=== PATIENT | male | born 1985 | race Caucasian/White ===

== ENCOUNTER 2024-06-13 10:07 | Emergency (ER) | payer SELFPAY ==
[~2024-06-13] VITALS: Ht 180.3 cm; Wt 82.0 kg
[2024-06-13 10:17] VITALS: O2SAT 100
[2024-06-13 11:06] LABS: BASOPHILS % 1.3 % (0.0-2.0); EOSINOPHILS % 1.8 % (0.0-5.0); HEMATOCRIT. 42.7 % (42.0-52.0); HEMOGLOBIN. 14.7 g/dL (14.0-18.0); LYMPHOCYTES % 26.7 % (20.0-50.0); MEAN CORPUSCULAR HEMOGLOBIN 29.1 pg (28.0-32.0); MEAN CORPUSCULAR HGB CONC 34.3 g/dL (31.0-37.0); MEAN CORPUSCULAR VOLUME 84.9 fL (80.0-94.0); MEAN PLATELET VOLUME 7.4 fl (7.4-10.4); MONOCYTES % 8.3 % (2.0-8.0); NEUTROPHILS % 61.9 % (40.0-76.0); PLATELET 270 x1000/uL (130-400); RED BLOOD CELL COUNT 5.03 mill/uL (4.7-6.1); RED CELL DISTRIBUTION WIDTH 13.4 % (11.6-14.6)
[2024-06-13 11:10] LABS: CHLORIDE 108 mEq/L (98-107); POTASSIUM 4.2 mEq/L (3.5-5.1); SODIUM 141 mEq/L (136-145)
[2024-06-13 11:11] LABS: CARBON DIOXIDE 25 mEq/L (21-32)
[2024-06-13 11:16] LABS: CREATININE 1.1 mg/dL (0.6-1.3); GLUCOSE 117 mg/dL (70-105); PARTIAL THROMBOPLASTIN TIME 27.5 sec (23.4-31.0); PROTHROMBIN TIME 11.2 sec (9.6-11.0); UREA NITROGEN BLOOD 13 mg/dL (9-23)
[2024-06-13 11:21] LABS: THYROID STIMULATING HORMONE 0.58 uIU/mL (0.55-4.78)
[2024-06-13 12:05] VITALS: RESP 18; TEMP 36.94740; O2SAT 100
[2024-06-13 12:06] VITALS: BP 114/63
[2024-06-13] MEDS: DILTIAZEM HCL 5MG/ML 5ML VIAL IV ONE (12:06)
[2024-06-13 12:08] LABS: TROPONIN I HIGH SENSITIVITY < 4 ng/L (3.0-53)
[2024-06-13 12:50] VITALS: PULSE 114
[2024-06-13] MEDS: DILTIAZEM HCL 60MG TABLET PO ONE (12:50)
[2024-06-13] MEDS ORDERED: ACETAMINOPHEN 325MG TABLET PO PRN ×2 (13:00)
[2024-06-13] MEDS ORDERED: DOCUSATE SODIUM 100MG CAPSULE PO PRN (13:00)
[2024-06-13] MEDS ORDERED: GUAIFENESIN 200MG/10ML SUGAR FREE UDC PO PRN (13:00)
[2024-06-13] MEDS ORDERED: CLONIDINE 0.1MG TABLET PO PRN (13:00)
[2024-06-13] MEDS ORDERED: ONDANSETRON HCL 4MG/2ML INJ IV PRN (13:00)
[2024-06-13] MEDS ORDERED: IPRATROPIUM/ALBUTEROL 0.5-3(2.5)MG/3ML NEB HHN PRN (13:00)
[2024-06-14] MEDS ORDERED: PANTOPRAZOLE 40MG DR TABLET PO SCH (07:50)
[2024-06-14] MEDS ORDERED: ENOXAPARIN 40MG/0.4ML SYR SUBCUT SCH (09:00)
[2024-06-14] MEDS ORDERED: ASPIRIN 81MG EC TABLET PO SCH (09:00)
== END 2024-06-13 14:06 | disposition left against medical advice (07) ==
LOC: ER 10:07 → EDBEDREQ 10:32 → ER 14:06
DX: I48.91 Unspecified atrial fibrillation (principal); R00.2 Palpitations; E78.00 Pure hypercholesterolemia, unspecified
CPT/HCPCS: 80048; 83880; 84443; 85025; 85610; 85730; 84484; 36415; 71045; 93005; 96374; 99291; J3490; Z7610 ×5